=== PATIENT | male | born 1985 | race Hispanic/Latino ===

== ENCOUNTER 2024-02-01 23:25 | Emergency (ER) | payer OTHER, SELFPAY ==
[2024-02-01] MEDS ORDERED: Tetracaine 0.5% PF 4 ML BOT ONE (23:53)
[2024-02-01] MEDS ORDERED: Fluorescein Opthalmic Strip ONE (23:53)
== END 2024-02-02 00:33 | disposition home or self-care (01) ==
LOC: BURERS 23:25
DX: T15.02XA Foreign body in cornea, left eye, initial encounter (principal); T15.01XA Foreign body in cornea, right eye, initial encounter; F17.210 Nicotine dependence, cigarettes, uncomplicated
CPT/HCPCS: 65205; 99282

== ENCOUNTER 2024-04-11 21:20 | Emergency (ER) | payer OTHER ==
[2024-04-11] MEDS ORDERED: Tetracaine 0.5% PF 4 ML BOT ONE (21:35)
[2024-04-11] MEDS ORDERED: Fluorescein Opthalmic Strip ONE (21:35)
== END 2024-04-11 22:15 | disposition home or self-care (01) ==
LOC: BURERS 21:20
DX: T15.01XA Foreign body in cornea, right eye, initial encounter (principal); F17.210 Nicotine dependence, cigarettes, uncomplicated; X58.XXXA Exposure to other specified factors, initial encounter
CPT/HCPCS: 99283

== ENCOUNTER 2024-08-15 16:00 | Emergency (ER) | payer OTHER ==
[2024-08-15] MEDS ORDERED: Cephalexin 250 MG CAP ONE (16:40)
== END 2024-08-15 16:49 | disposition home or self-care (01) ==
LOC: BURERS 16:00
DX: L03.115 Cellulitis of right lower limb (principal); F17.210 Nicotine dependence, cigarettes, uncomplicated
CPT/HCPCS: 99283

== ENCOUNTER 2025-03-20 15:54 | Emergency (ER) | payer OTHER, SELFPAY ==
[2025-03-20 16:24] LABS: #Basophils 0.1 thou/uL (0.0-0.2); #Eosinophils 0.2 thou/uL (0.0-0.7); #Lymphocytes 2.2 thou/uL (1.20-3.40); #Monocytes 1.2 thou/uL (0.11-0.59); #Neutrophils 6.4 thou/uL (1.40-6.50); %Basophils 1.3 % (0.0-1.0); %Eosinophils 1.5 % (0.0-10.0); %Lymphocytes 21.7 % (21.0-51.0); %Monocytes 11.9 % (0.0-10.0); %Neutrophils 63.6 % (42.0-75.0); Hematocrit 44.9 % (42.0-52.0); Hemoglobin 15.7 g/dL (14.0-18.0); Mean Corpuscular Hemoglobin 28.3 pg (27.0-31.0); Mean Corpuscular Volume 81.1 fl (78.0-98.0); Platelet Count 526 10x3/uL (130-400); Red Blood Cell (RBC) Count 5.53 mill/uL (4.70-6.10); White Blood Cell (WBC) Count 10.1 10x3/uL (4.8-10.8)
[2025-03-20 16:42] LABS: ALT (SGPT) 43 U/L (Less than 45); AST (SGOT) 34 U/L (11-34); Albumin 4.8 g/dL (3.1-4.5); Alkaline Phosphatase 77 U/L (40-110); Anion Gap 21 mmol/L (10-20); BUN (Urea Nitrogen) 51 mg/dL (8.9-20.6); Bilirubin, Total 0.5 mg/dL (0.3-1.2); CK (CPK) 551 U/L (30-200); Calc. Creatinine Clearance 0 mL/min (70-130); Calcium 9.0 mg/dL (7.8-10.44); Carbon Dioxide 23 mmol/L (22-29); Chloride 95 mmol/L (98-107); Globulin 3.9 g/dL (2.4-3.5); Glucose 105 mg/dL (70-105); Potassium 3.1 mmol/L (3.5-5.1); Sodium 136 mmol/L (136-145); Troponin I 0.015 ng/mL (< 0.028)
[2025-03-20 17:13] LABS: Magnesium 2.4 mg/dL (1.6-2.6)
== END 2025-03-20 18:07 | disposition home or self-care (01) ==
LOC: BURERS 15:54
DX: N17.9 Acute kidney failure, unspecified (principal); M62.82 Rhabdomyolysis; I25.10 Atherosclerotic heart disease of native coronary artery without angina pectoris; I25.2 Old myocardial infarction; E78.00 Pure hypercholesterolemia, unspecified; Z87.891 Personal history of nicotine dependence; Z79.899 Other long term (current) drug therapy
CPT/HCPCS: 71045; 80053; 82550; 83735; 84484; 85025; 93005; 96360